=== PATIENT | female | born 1935 | race Caucasian/White ===

== ENCOUNTER 2022-07-06 20:34 | Inpatient (IN) | payer MEDICARE, BC ==
[~2022-07-06] VITALS: Ht 147.3 cm; Wt 47.6 kg
--- NOTE | 2022-07-06 20:49 | NUR ---
Dr. Oro at bedside for MSE.
--- NOTE | 2022-07-06 21:03 | NUR ---
Pt out of ER for CT.
--- NOTE | 2022-07-06 21:23 | NUR ---
pt returned from cat scan.
--- NOTE | 2022-07-06 22:18 | NUR ---
I called [facility] at [phone] and spoke with Mya JONESpersonalized living manager nurse. Dr. Oro spoke with her and gave her additional information. I faxed the pt's face sheet to number [phone].
[2022-07-06 22:23] LABS: HEMATOCRIT 37.8 % (31.2-41.9); MEAN CORPUSCULAR HEMOGLOBIN 31.7 uug (24.7-32.8); MEAN CORPUSCULAR VOLUME 94.3 fL (75.5-95.3); PLATELET COUNT (AUTO) 244 K/uL (179-408)
[2022-07-06 22:30] LABS: CARBON DIOXIDE 29 mmol/L (21-32); CHLORIDE 101 mmol/L (98-107); CREATININE 0.7 mg/dL (0.6-1.3); GLUCOSE 118 mg/dL (74-106); UREA NITROGEN, BLOOD 24 mg/dL (7-18)
[2022-07-06 22:42] LABS: ALANINE AMINOTRANSFERASE 33 U/L (14-59); ALKALINE PHOSPHATASE 88 U/L (50-136); ASPARTATE AMINOTRANSFERASE 36 U/L (15-37); BILIRUBIN,DIRECT 0.1 mg/dL (0.0-0.2); BILIRUBIN,TOTAL 0.4 mg/dL (0.2-1.0); TOTAL PROTEIN, SERUM 7.9 g/dL (6.4-8.2)
--- NOTE | 2022-07-06 23:04 | NUR ---
Called [facility] to page Dr. Reyna Kilgore.
[2022-07-06] MEDS ORDERED: ACETAMINOPHEN 325 MG TABLET PO PRN (23:15)
[2022-07-06] MEDS ORDERED: MAGNESIUM HYDROXIDE 30 ML LIQUID UDC PO PRN (23:15)
[2022-07-06] MEDS ORDERED: HYDROCODONE/APAP 10-325 MG TABLET PO PRN (23:15)
[2022-07-06] MEDS ORDERED: ONDANSETRON 4 MG/2 ML VIAL IV PRN (23:15)
--- NOTE | 2022-07-06 23:15 | NUR ---
Dr. Oro on panel call with Dr. Reyna Kilgore.
[2022-07-06] MEDS ORDERED: GABA-532 PO (23:46)
[2022-07-06] MEDS ORDERED: LEVO25TA2 PO (23:46)
[2022-07-06] MEDS ORDERED: METO-356 PO (23:46)
[2022-07-06] MEDS ORDERED: FAMO-132 PO (23:46)
[2022-07-06] MEDS ORDERED: ESCI5TAB PO (23:46)
--- NOTE | 2022-07-06 23:46 | NUR ---
Pt states unable to remember doses for her medications, needs further follow up.
--- NOTE | 2022-07-06 23:51 | NUR ---
Report given to Dixie JONES tele.
--- NOTE | 2022-07-07 00:30 | NUR ---
Received pt via wheelchair assisted by RN. Admitted to Tele. Pt fell and hit the back of head. Dx R/O ICH. Admitted by Dr. Kilgore. Pt able to ambulate. AAO x 3. IV L FA 20 g intact and patent. On room air. All belongings checked and documented. Bed alarm on. Call light in reach. Bed in lowest position. Will continue to monitor.
[2022-07-07 00:32] VITALS: BP 174/90
[2022-07-07] MEDS ORDERED: hydrALAZINE HCL 20 MG/1 ML VIAL IV PRN (01:35)
--- NOTE | 2022-07-07 01:35 | NUR ---
Pt's BP is 174/90. Received order from Dr. Mckee to give Hydralazine PRN if SBP is >170. Medication administered. Will continue to monitor.
[2022-07-07 04:55] VITALS: BP 124/66
[2022-07-07 06:25] LABS: HEMATOCRIT 38.2 % (31.2-41.9); MEAN CORPUSCULAR HEMOGLOBIN 31.9 uug (24.7-32.8); MEAN CORPUSCULAR VOLUME 93.9 fL (75.5-95.3); PLATELET COUNT (AUTO) 256 K/uL (179-408)
[2022-07-07 06:30] LABS: CARBON DIOXIDE 28 mmol/L (21-32); CHLORIDE 102 mmol/L (98-107); CREATININE 0.7 mg/dL (0.6-1.3); GLUCOSE 97 mg/dL (74-106); MAGNESIUM 2.2 mg/dL (1.8-2.4); PHOSPHOROUS 3.9 mg/dL (2.5-4.9); POTASSIUM 3.9 mmol/L (3.5-5.1); UREA NITROGEN, BLOOD 18 mg/dL (7-18)
[2022-07-07] MEDS ORDERED: Medication Not On Formulary EA (Escitalopram Oxalate (Lexapro) 1 TAB) PO SCH (09:00)
[2022-07-07] MEDS ORDERED: LEVOTHYROXINE SODIUM 25 MCG TABLET PO SCH (09:00)
[2022-07-07] MEDS ORDERED: METO25TA6 PO (09:07)
[2022-07-07] MEDS ORDERED: EZET10TA15 PO (09:36)
[2022-07-07] MEDS ORDERED: LISI-782 PO (09:36)
[2022-07-07] MEDS: ESCITALOPRAM OXALATE 10 MG TABLET PO SCH (09:39)
[2022-07-07] MEDS: FAMOTIDINE 20 MG TABLET PO SCH (09:39)
[2022-07-07] MEDS: LEVOTHYROXINE SODIUM 75 MCG TABLET PO SCH (09:39)
[2022-07-07] MEDS: GABAPENTIN 100 MG CAPSULE PO SCH ×3 (09:39→18:21)
[2022-07-07] MEDS ORDERED: METOPROLOL TARTRATE 25 MG TABLET PO SCH ×2 (10:00→17:00)
[2022-07-07] MEDS ORDERED: METOPROLOL SUCCINATE XL 25 MG TAB.SR.24H PO SCH (10:00)
[2022-07-07 11:15] VITALS: BP 145/82
[2022-07-07] MEDS ORDERED: LEVO75TA7 PO (12:04)
[2022-07-07 15:07] VITALS: BP 148/84
[2022-07-07 20:06] VITALS: BP 139/81
[2022-07-08] VITALS: BP 127/75
[2022-07-08 04:09] VITALS: BP 135/71
[2022-07-08] MEDS: LEVOTHYROXINE SODIUM 75 MCG TABLET PO SCH (06:04)
[2022-07-08 06:32] LABS: MEAN CORPUSCULAR HEMOGLOBIN 31.8 uug (24.7-32.8); MEAN CORPUSCULAR VOLUME 93.6 fL (75.5-95.3); PLATELET COUNT (AUTO) 224 K/uL (179-408)
[2022-07-08 06:39] LABS: CREATININE 0.7 mg/dL (0.6-1.3)
[2022-07-08] MEDS: FAMOTIDINE 20 MG TABLET PO SCH (08:06)
[2022-07-08] MEDS: GABAPENTIN 100 MG CAPSULE PO SCH ×2 (08:07→12:06)
[2022-07-08] MEDS: ESCITALOPRAM OXALATE 10 MG TABLET PO SCH (08:07)
[2022-07-08] MEDS ORDERED: METOPROLOL TARTRATE 25 MG TABLET PO SCH (09:00)
[2022-07-08 11:09] VITALS: BP 108/65
--- NOTE | 2022-07-08 14:23 | NUR ---
dc orders received noted and carried out dc instruction and education given to the pt dc heplock per md orders,pt left the facility via ambulances in stable condition
== END 2022-07-08 14:23 | DRG 85 ==
LOC: ER 20:34 → TELE3 23:58
PROVIDERS: ADMIT Internal Medicine; ATTEND Internal Medicine
DX: S06.310A Contusion and laceration of right cerebrum without loss of consciousness, initial encounter (principal); N17.0 Acute kidney failure with tubular necrosis; I10 Essential (primary) hypertension; F32.9 Major depressive disorder, single episode, unspecified; K21.9 Gastro-esophageal reflux disease without esophagitis; G62.9 Polyneuropathy, unspecified; E03.9 Hypothyroidism, unspecified; W18.30XA Fall on same level, unspecified, initial encounter; Y93.9 Activity, unspecified; Z20.822 Contact with and (suspected) exposure to COVID-19; R40.2362 Coma scale, best motor response, obeys commands, at arrival to emergency department; R40.2142 Coma scale, eyes open, spontaneous, at arrival to emergency department; R40.2252 Coma scale, best verbal response, oriented, at arrival to emergency department; Y92.89 Other specified places as the place of occurrence of the external cause
CPT/HCPCS: 36415; 70450; 83735; 84100; 85025; 85730; 93005; 97161; A4663; G0378; J0360